=== PATIENT | female | born 2000 | race Hispanic/Latino ===

== ENCOUNTER 2023-10-04 14:28 | Emergency (ER) | payer OTHER, SELFPAY ==
[2023-10-04] VITALS (7 sets, daily range): BP systolic 116–127; BP diastolic 60–72; PULSE 74–83; RESP 16–18; TEMP 36.8; O2SAT 98–100; BMI 30.9
--- NOTE | 2023-10-04 15:06 | DI.US.S_ITS ---
PROCEDURE: US OB LIMITED INDICATIONS: SPOTTING OUTSIDE/PRIOR DATING DATA: Last menstrual period (LMP): June 18, 2023. LMP-based estimated date of delivery (ZOE): March 24, 2024. . First dating scan (date and location): October 04, 2023. Estimated date of delivery (ZOE) from first dating scan: March 21, 2024. The calculations are made using the ultrasound ZOE of March 21, 2024. TECHNIQUE: Real-time scanning was performed of the fetus, with image documentation and biometric measurements. Endovaginal scanning: Performed COMPARISON: None. FINDINGS: General: A single living intrauterine gestation is present. Presentation: Breech. Placenta: Placental position is anterior, without previa. Amniotic fluid index: 11.3 cm, normal range is 5-24 cm. Single deepest vertical pocket is 3.4 cm. heart rate: 152 beats per minute. Maternal cervical canal: 2.8 cm long. Normal lower limit is 2.5 cm. biometrics: Biparietal diameter: 15 weeks 6 days Head circumference: 14 weeks 4 days Abdominal circumference: 16 weeks 0 days Femur length: 15 weeks 5 days Clinically estimated gestational age: 15 weeks 3 days Composite gestational age from present scan: 15 weeks 6 days Other: Not applicable. IMPRESSION: Single living intrauterine with ultrasound estimated gestational age of 15 weeks 6 days corresponding to ultrasound ZOE of March 21, 2024. Dictated by: Lisa Madrid MD, PhD on 10/04/2023 at 16:28 Approved by: Lisa Madrid MD, PhD on 10/04/2023 at 16:31
[2023-10-04 15:39] LABS: Add Manual Diff / Slide Review NO; Basophils Absolute Auto 0 /uL (0-100); Eosinophils Absolute Auto 0 /uL (0-450); Eosinophils Percent Auto 0.4 % (2-4); Hematocrit 37.7 % (36-46); Lymphocytes Absolute Auto 1200 /uL (1100-4500); Lymphocytes Percent Auto 12.6 % (25-40); Mean Corpuscular HGB Conc 34.4 % (30-36); Mean Corpuscular Hemoglobin 29.9 PG (26-34); Mean Corpuscular Volume 86.8 fL (80-100); Monocytes Absolute Auto 500 /uL (0-900); Monocytes Percent Auto 5.5 % (3-14); Neutrophils Absolute Auto 7600 /uL (1500-7000); Neutrophils Percent Auto 81.5 % (50-75); Platelet Count 259 X10^3/uL (150-400); Red Blood Cell Count 4.34 X10^6/uL (4.0-5.2); Red Cell Distribution Width 13.7 % (11.6-14.8); White Blood Cell Count 9.3 X10^3/uL (4.5-11.0)
[2023-10-04 15:46] LABS: Alanine Aminotransferase 20 IU/L (<35); Albumin 4.3 g/dL (3.5-5.0); Albumin Globulin Ratio 1.2 (1.0-2.8); Alkaline Phosphatase 51 U/L (38-126); Aspartate Aminotransferase 23 IU/L (14-36); BUN Creatinine Ratio 10.3 (6-22); Bilirubin Total 0.5 mg/dL (0.2-1.3); Blood Urea Nitrogen 6 mg/dL (7-17); Calcium 8.9 mg/dL (8.4-10.2); Carbon Dioxide 21 mmol/L (22-32); Chloride 106 mmol/L (98-107); Estimated Glomerular Filt Rate > 60 mL/min (>60); Globulin 3.7 g/dL (1.7-4.1); Glucose 107 mg/dL (70-100); HEMOLYSIS < 15 (0-50); Potassium 3.8 mmol/L (3.4-5.1); Sodium 137 mmol/L (137-145)
[2023-10-04 16:32] LABS: HCG Quantitative /Beta subunit 44484 mIU/mL
[2023-10-04 16:36] LABS: Pregnancy Test Urine Positive (Negative)
--- NOTE | 2023-10-04 16:38 | ED.PREGNANCY ---
HPI - General Chief complaint: Vaginal Bleeding Stated complaint: 15 wks , bleeding and cramping Time Seen by Provider: 10/04/23 15:49 Source: patient Mode of arrival: Family Vehicle Limitations: no limitations History of Present Illness HPI Narrative: 23-year-old female last menstrual period was 10/23/2023 presents for evaluation. Patient was in [facility] had an ultrasound at approximately 6 weeks' . She has recently moved to the area and was at the [facility] to set up care. Did to urine test which were both reportedly negative and was told that was in compatible with . Patient presents for evaluation she states she did have a little bit of sharp pain earlier today and small spots of red blood. She has not had any abdominal pain or cramping otherwise no other bleeding. She states no other symptoms currently. She is attempting to set up care. States no daily medications. No known drug allergies. No prior surgeries. Related Data Home Medications Medication Instructions Recorded Confirmed docosahexaenoic acid 200 mg mg PO 09/30/23 09/30/23 capsule ( DHA) Previous Rx's Medication Instructions Recorded amoxicillin 500 mg capsule 500 mg PO BID #20 caps 09/30/23 Allergies Allergy/AdvReac Type Severity Reaction Status Date / Time No Known Drug Allergies Allergy Unverified 09/30/23 16:13 Review of Systems Review of Systems ROS Unobtainable: All systems reviewed & are unremarkable except as noted in HPI and below Exam Narrative Exam Narrative: GENERAL: Alert and oriented x three, female mild distress. HEENT: Head normocephalic, atraumatic, EOMI, pupils reactive, face symmetric, moist mucous membranes NECK: Supple, full range of motion CARDIOVASCULAR: Regular rate and rhythm without murmurs, rubs or gallops. RESPIRATORY: Breath sounds equal bilaterally, no wheezes rales or rhonchi. ABDOMEN: Soft, nontender. Nondistended. Normoactive bowel sounds all 4 quadrants. No guarding or rebound, rigidity, no mass : No CVA tenderness EXTREMITIES: Normal range of motion, no clubbing or edema. Neurovascularly intact NEUROLOGICAL: Cranial nerves II through XII grossly intact. Moving all extremities SKIN: Warm, dry, no petechiae, no rashes or lesions. Initial Vital Signs Initial Vital Signs: Vital Signs Temperature 98.2 F 10/04/23 14:46 Pulse Rate 76 07/16/24 14:46 Respiratory Rate 16 10/04/23 14:46 Blood Pressure 116/60 10/04/23 14:46 Pulse Oximetry 98 10/04/23 14:46 Oxygen Delivery Method Room Air 10/04/23 14:46 Course Orders Ordered: ED Orders 10/04/23 15:06 US OB limited Stat 10/04/23 15:19 Complete Blood Count AUTO DIFF Stat Comprehensive Metabolic Panel Stat HCG Quantitative /Beta subunit Stat Type and Screen Stat 10/04/23 15:58 Test Urine Stat Urine Culture Stat Urine Microscopic Stat Vital Signs Vital signs: Vital Signs - 8 hr 10/04/23 14:46 10/04/23 15:46 10/04/23 15:46 Temperature 98.2 F Pulse Rate 76 74 Respiratory Rate 16 Blood Pressure 116/60 120/72 Pulse Oximetry 98 98 Oxygen Delivery Method Room Air 10/04/23 15:52 10/04/23 15:52 10/04/23 16:00 Temperature Pulse Rate 83 78 Respiratory Rate Blood Pressure 123/71 Pulse Oximetry 100 100 Oxygen Delivery Method Room Air 10/04/23 16:00 10/04/23 16:30 10/04/23 16:30 Temperature Pulse Rate 77 Respiratory Rate Blood Pressure 127/63 122/69 Pulse Oximetry 100 Oxygen Delivery Method Room Air 10/04/23 17:00 10/04/23 17:07 Temperature Pulse Rate 76 81 Respiratory Rate 18 Blood Pressure 122/69 Pulse Oximetry 100 100 Oxygen Delivery Method Room Air MDM - OB/Uterine Contractions Lab Data 10/04/23 15:19 10/04/23 15:19 Labs: Lab Results 10/04/23 10/04/23 Range/Units 15:19 15:58 WBC 9.3 (4.5-11.0) X10^3/uL RBC 4.34 (4.0-5.2) X10^6/uL Hgb 13.0 (12.0-16.0) g/dL Hct 37.7 (36-46) % MCV 86.8 (80-100) fL MCH 29.9 (26-34) PG MCHC 34.4 (30-36) % RDW 13.7 (11.6-14.8) % Plt Count 259 (150-400) X10^3/uL Neut % (Auto) 81.5 H (50-75) % Lymph % (Auto) 12.6 L (25-40) % [place] % (Auto) 5.5 (3-14) % Eos % (Auto) 0.4 L (2-4) % Baso % (Auto) 0.0 (0-2) % Neut # (Auto) 7600 H (0646-5147) /uL Lymph # (Auto) 1200 (7627-1901) /uL [place] # (Auto) 500 (0-900) /uL Eos # (Auto) 0 (0-450) /uL Baso # (Auto) 0 (0-100) /uL Sodium 137 (137-145) mmol/L Potassium 3.8 (3.4-5.1) mmol/L Chloride 106 (98-107) mmol/L Carbon Dioxide 21 L (22-32) mmol/L BUN 6 L (7-17) mg/dL Creatinine 0.58 (0.52-1.04) mg/dL Estimated GFR > 60 (>60) mL/min BUN/Creatinine Ratio 10.3 (6-22) Glucose 107 H (70-100) mg/dL Calcium 8.9 (8.4-10.2) mg/dL Total Bilirubin 0.5 (0.2-1.3) mg/dL AST 23 (14-36) IU/L ALT 20 (<35) IU/L Alkaline Phosphatase 51 (38-126) U/L Total Protein 8.0 (6.3-8.2) g/dL Albumin 4.3 (3.5-5.0) g/dL Globulin 3.7 (1.7-4.1) g/dL Albumin/Globulin Ratio 1.2 (1.0-2.8) HCG, Quant 33560 mIU/mL Urine RBC 1-5/hpf (0-5/HPF) Urine WBC 5-10/hpf H (0-5/HPF) Ur Squamous Epith Cells 5-10 /hpf H (0-5/HPF) Urine Bacteria Many (>30) H (None) Ur Culture Indicated? Specimen cultured Vol Urine Centrifuged 10ml (spun) Urine Test Positive H (Negative) Blood Type O Positive Antibody Screen Negative Urine Dip Bedside Urine Glucose Negative Bedside Urine Bilirubin - Negative Bedside Urine Ketone +/- 5 Urine Specific [place] 1.015 Bedside Urine Occult Blood - Negative Bedside Urine pH 6.5 Bedside Urine Protein - Negative Bedside Urine Urobilinogen - Negative Bedside Urine Nitrite - Negative Bedside Urine Leukocytes + 70 Esterase Imaging Data US - OB: Radiologist's Impression: [address] [id number] Ultrasound Report Signed Patient: Cara Kulkarni MR#: [id number] : 2000 Acct:[id number] Age/Sex: 23 / F Date of Service: 10/04/23 Loc: ED Accession Number: [id number] Procedure: US OB limited Ordering Provider: Rosa Donis D.O. PROCEDURE: US OB LIMITED INDICATIONS: SPOTTING OUTSIDE/PRIOR DATING DATA: Last menstrual period (LMP): June 18, 2023. LMP-based estimated date of delivery (ZOE): March 24, 2024. . First dating scan (date and location): October 04, 2023. Estimated date of delivery (ZOE) from first dating scan: March 21, 2024. The calculations are made using the ultrasound ZOE of March 21, 2024. TECHNIQUE: Real-time scanning was performed of the fetus, with image documentation and biometric measurements. Endovaginal scanning: Performed COMPARISON: None. FINDINGS: General: A single living intrauterine gestation is present. Presentation: Breech. Placenta: Placental position is anterior, without previa. Amniotic fluid index: 11.3 cm, normal range is 5-24 cm. Single deepest vertical pocket is 3.4 cm. heart rate: 152 beats per minute. Maternal cervical canal: 2.8 cm long. Normal lower limit is 2.5 cm. biometrics: Biparietal diameter: 15 weeks 6 days Head circumference: 14 weeks 4 days Abdominal circumference: 16 weeks 0 days Femur length: 15 weeks 5 days Clinically estimated gestational age: 15 weeks 3 days Composite gestational age from present scan: 15 weeks 6 days Other: Not applicable. IMPRESSION: Single living intrauterine with ultrasound estimated gestational age of 15 weeks 6 days corresponding to ultrasound ZOE of March 21, 2024. Dictated by: Lisa Madrid MD, PhD on 10/04/2023 at 16:28 Approved by: Lisa Madrid MD, PhD on 10/04/2023 at 16:31 [facility] Narrative Medical decision making narrative: who had reported positive on ultrasound at 6 weeks in [facility] presented to the [facility] to set up referral for care and was told after 2- urine test that she was not . She states she did have a little bit of spotting and cramping earlier this morning but has not had any prior. Patient's workup today is consistent with as well fairly close to her dates. According to patient's last menstrual period she would be 14 weeks and 5 days, ultrasound today puts her at 15 weeks and 6 days, heart rates 152, with single living intrauterine . CBC shows normal white count hemoglobin and platelets, chemistries got normal sodium, potassium chloride CO2 is 21 BUN 6 normal creatinine glucose of 107 LFTs are negative, hCG quantitative is 44,484 Urine test is positive. Patient was given copy of test. Discussed pelvic rest and given referral for OBGYN follow-up. Discharge Plan Departure Patient Disposition: Home Clinical Impression: Vaginal bleeding in Instructions: DI for Vaginal Bleeding During Activity Restrictions/Additional Instructions: Follow up with Obstetrics. Contacts included below. Please call to set up a follow up appointment. Your labs today show a positive urine test, your quantitative hCG level is 44,484. Your ultrasound shows intrauterine estimated gestational age of 15 weeks 6 days with a corresponding ultrasound estimated date of delivery of March 21, 2024. Because your ultrasound is little bit later in there can sometimes be some discrepancy between dates but that is fairly closely with your last menstrual period putting your dates at 14 weeks and 5 days. A copy of your ultrasound and labs are included in your discharge paperwork. Continue with pelvic rest, no tampons, heavy lifting, or sexual activity until cleared by Obstetrics. Please return if you have severe abdominal pain, persistent bleeding, going through more than a pad or tampon an hour, lightheadedness or passing out, persistent vomiting or other new or concerning changes. Prescriptions: No Action DHA 200 mg capsule PO amoxicillin 500 mg capsule 500 mg PO BID Qty: 20 0RF Referrals: Miscellaneous,DoctorMD [Primary Care Provider] - Luz Blandon DO [Physician] - Stand Alone Forms: Patient Portal/API
[2023-10-04 16:55] LABS: Bacteria Urine Many (>30); Culture Indicated Urine Specimen Cultured; RBC Urine 1-5/HPF (0-5/HPF); Squamous Epithelial Cell Urine 5-10 /HPF (0-5/HPF); Urine Volume 10mL (spun); WBC Urine 5-10/HPF (0-5/HPF)
== END 2023-10-04 17:09 | disposition home or self-care (01) ==
PROVIDERS: Emergency Provider Emergency Medicine
DX: O46.91 Antepartum hemorrhage, unspecified, first trimester (principal); Z3A.15 15 weeks gestation of pregnancy
CPT/HCPCS: 36415; 76815; 80053; 81003; 81015; 81025; 84702; 85025; 86850; 86900; 86901; 87086; 99283; 99284

== ENCOUNTER → 2023-10-17 16:04 | Outpatient (CLI) | payer OTHER, SELFPAY ==
[2023-10-17 17:29] LABS: Add Manual Diff / Slide Review NO; Basophils Absolute Auto 0 /uL (0-100); Basophils Percent Auto 0.1 % (0-2); Eosinophils Absolute Auto 100 /uL (0-450); Eosinophils Percent Auto 0.8 % (2-4); Hematocrit 35.4 % (36-46); Hemoglobin 12.4 g/dL (12.0-16.0); Lymphocytes Absolute Auto 1400 /uL (1100-4500); Mean Corpuscular Hemoglobin 30.4 PG (26-34); Mean Corpuscular Volume 86.8 fL (80-100); Monocytes Absolute Auto 500 /uL (0-900); Monocytes Percent Auto 5.3 % (3-14); Neutrophils Absolute Auto 7900 /uL (1500-7000); Neutrophils Percent Auto 79.8 % (50-75); Platelet Count 275 X10^3/uL (150-400); Red Blood Cell Count 4.08 X10^6/uL (4.0-5.2); Red Cell Distribution Width 13.7 % (11.6-14.8); White Blood Cell Count 9.9 X10^3/uL (4.5-11.0)
[2023-10-17 17:39] LABS: Natera Collection Specimen Collected
[2023-10-17 18:54] LABS: Hep C Virus Ab w/Reflex Quant NEGATIVE s/c (NEGATIVE); Hepatitis B Surface Antigen NEGATIVE s/c (NEGATIVE)
[2023-10-17 18:55] LABS: HIV 1 & 2 Ab/Ag 4th Gen Combo NEGATIVE (NEGATIVE)
[2023-10-17 19:12] LABS: Urine N gonorrhoeae NOT DETECTED
[2023-10-17 19:27] LABS: Natera Collection Specimen Collected
[2023-10-17 19:39] LABS: Urine Chlamydia DETECTED
[2023-10-19 05:13] LABS: RPR Screen Non Reactive (Non Reactive)
[2023-10-19 12:10] LABS: Varicella IgG Antibody <135 index (Immune >165)
[2023-10-20 21:08] LABS: AFP Value 53.2 ng/mL (.); Gest Age on Col Date 18.7 weeks (.); Insulin Dep Diabetes No (.); OSBR Risk 1IN 5926 (.); Results Report (.); Test Results *Screen Negative* (.)
== END ==
PROVIDERS: PCP Nurse Practitioner Family; Referring Provider Student in an Organized Health Care Education/Training Program; Visit Provider Student in an Organized Health Care Education/Training Program
DX: Z34.02 Encounter for supervision of normal first pregnancy, second trimester (principal); Z31.430 Encounter of female for testing for genetic disease carrier status for procreative management; Z36.0 Encounter for antenatal screening for chromosomal anomalies
CPT/HCPCS: 36415; 80055; 82105; 86787; 86803; 86850; 86900; 86901; 87086; 87389; 87491; 87591

== ENCOUNTER → 2023-10-19 15:07 | Outpatient (CLI) | payer OTHER, SELFPAY ==
--- NOTE | 2023-10-19 15:08 | DI.US.S_ITS ---
PROCEDURE: US OB >= 14 WEEKS FETUS INDICATIONS: anatomy OUTSIDE/PRIOR DATING DATA: Last menstrual period (LMP): 06/18/2023. LMP-based estimated date of delivery (ZOE): 03/24/2024. First dating scan (date and location): 10/04/2023. Estimated date of delivery (ZOE) from first dating scan: 03/21/2024. The calculations are made using the ultrasound ZOE of 03/21/2024. TECHNIQUE: Real-time scanning was performed of the fetus, with image documentation and biometric measurements. Endovaginal scanning: Not performed COMPARISON: [facility], OB LIMITED, 10/04/2023, 15:34. FINDINGS: General: A single living intrauterine gestation is present. Presentation: Breech. Placenta: Placental position is anterior, without previa. Amniotic fluid index: 13.7 cm, normal range is 5-24 cm. Single deepest vertical pocket is 4 cm. heart rate: 147 beats per minute. Maternal cervical canal: 2.4 cm long. Normal lower limit is 2.5 cm. No funneling. biometrics: Biparietal diameter: 3.9 cm, 17 weeks 6 days Head circumference: 14.6 cm, 17 weeks 5 days Abdominal circumference: 12.7 cm, 18 weeks 1 days Femur length: 2.7 cm, 18 weeks 0 days Clinically estimated gestational age: 17 weeks 4 days Composite gestational age from present scan: 18 weeks 0 days Estimated weight and percentile: 226 g, 80th percentile Anatomic survey: Neuro: Ventricles are non-dilated at less than 10 mm. Cisterna magna is normal at 3-11 mm. Cerebellum is normal in size and morphology. Nuchal skin fold: Normal at less than 6 mm between 14-21 weeks gestational age. Face: Nose and lips, facial profile are normal. Spine: No evidence for spina bifida. Heart: Not well seen. Diaphragm: Diaphragm is intact. Stomach: Left-sided stomach is present. Kidneys: No hydronephrosis. Normal is less than 5 mm in 2nd trimester, less than 7 mm in 3rd trimester. Cord: 3-vessel cord has orthotopic insertion. Bladder: Normal in size. Extremities: All 4 extremities identified. IMPRESSION: 1. Nixon living intrauterine at 18 weeks 0 days based on today's ultrasound. Fetus is in the 80th percentile for weight. 2. Normal placenta and amniotic fluid. Cervix measures 2.4 cm. No funneling. 3. heart is not well seen due to positioning. Otherwise normal anatomic survey. Recommend follow-up ultrasound. We strive to produce accurate, complete, and clear reports of imaging services. To assist us in improving patient care, this report was composed using standard report templates and voice recognition software. Therefore, it may contain abnormal punctuation, insertions and/or omissions. Occasional wrong-word or sound-alike substitutions may occur. Though we review the report and make efforts to correct it, we do recommend that the report be read carefully in proper context to recognize any text inaccuracies. Dictated by: Sesar Ferreira M.D. on 10/20/2023 at 17:38 Approved by: Sesar Ferreira M.D. on 10/20/2023 at 17:46
== END ==
PROVIDERS: PCP Nurse Practitioner Family; Referring Provider Student in an Organized Health Care Education/Training Program; Visit Provider Student in an Organized Health Care Education/Training Program
DX: Z34.02 Encounter for supervision of normal first pregnancy, second trimester (principal); Z3A.18 18 weeks gestation of pregnancy
CPT/HCPCS: 76811

== ENCOUNTER → 2023-10-28 09:09 | Outpatient (CLI) | payer OTHER, SELFPAY ==
--- NOTE | 2023-10-28 09:10 | DI.US.S_ITS ---
PROCEDURE: US OB FOLLOW UP INDICATIONS: Follow up anatomy scan OUTSIDE/PRIOR DATING DATA: Last menstrual period (LMP): 06/18/2023. LMP-based estimated date of delivery (ZOE): 03/24/2024. Working ZOE is 03/21/2024 TECHNIQUE: Real-time scanning was performed of the fetus, with image documentation. COMPARISON: [facility], , OB >= 14 WEEKS FETUS, 10/19/2023, 15:28. FINDINGS: A single living intrauterine gestation is present. Presentation: Vertex. Placenta: Anterior placenta. Amniotic fluid index: 12.2 cm, normal range is 5-24 cm. Single deepest vertical pocket is 3.9 cm. heart rate: 143 beats per minute. Maternal cervical canal: 3 cm long. Normal lower limit is 2.5 cm. Clinically estimated gestational age: 19 weeks and 2 days Four-chamber view and cardiac outflow tracts are within normal limits. IMPRESSION: In conjunction with prior imaging, no significant abnormalities identified on routine anatomic survey. No significant abnormalities identified in the cardiac structures. Normal VICTOR MANUEL. Dictated by: Loc Porras M.D. on 10/28/2023 at 15:04 Approved by: Loc Porras M.D. on 10/28/2023 at 15:07
== END ==
PROVIDERS: PCP Nurse Practitioner Family; Referring Provider Student in an Organized Health Care Education/Training Program; Visit Provider Student in an Organized Health Care Education/Training Program
DX: Z3A.19 19 weeks gestation of pregnancy (principal); Z36.2 Encounter for other antenatal screening follow-up
CPT/HCPCS: 76816

== ENCOUNTER → 2023-11-22 10:59 | Outpatient (CLI) | payer OTHER, SELFPAY ==
[2023-11-22 16:25] LABS: Urine N gonorrhoeae NOT DETECTED
[2023-11-22 16:26] LABS: Urine Chlamydia NOT DETECTED
== END ==
PROVIDERS: PCP Nurse Practitioner Family; Visit Provider Student in an Organized Health Care Education/Training Program
DX: O98.819 Other maternal infectious and parasitic diseases complicating pregnancy, unspecified trimester (principal); A74.9 Chlamydial infection, unspecified
CPT/HCPCS: 87491; 87591

== ENCOUNTER → 2023-12-22 13:23 | Outpatient (CLI) | payer OTHER, SELFPAY ==
[2023-12-22 15:43] LABS: Hematocrit 34.1 % (36-46); Hemoglobin 11.7 g/dL (12.0-16.0)
[2023-12-22 16:05] LABS: GTT (PREG) 1 Hour PP 50gm Dose 69 mg/dL (76-139)
== END ==
PROVIDERS: PCP Nurse Practitioner Family; Referring Provider Student in an Organized Health Care Education/Training Program; Visit Provider Student in an Organized Health Care Education/Training Program
DX: Z13.1 Encounter for screening for diabetes mellitus (principal); Z13.0 Encounter for screening for diseases of the blood and blood-forming organs and certain disorders involving the immune mechanism
CPT/HCPCS: 36415; 82950; 85014; 85018

== ENCOUNTER → 2024-02-02 14:12 | Outpatient (CLI) | payer OTHER, SELFPAY ==
[2024-02-02 18:11] LABS: Urine N gonorrhoeae NOT DETECTED
[2024-02-02 18:38] LABS: Urine Chlamydia NOT DETECTED
== END ==
PROVIDERS: PCP Nurse Practitioner Family; Visit Provider Student in an Organized Health Care Education/Training Program
DX: O98.819 Other maternal infectious and parasitic diseases complicating pregnancy, unspecified trimester (principal); A74.9 Chlamydial infection, unspecified
CPT/HCPCS: 87491; 87591